=== PATIENT | male | born 1945 | race Caucasian/White ===

== ENCOUNTER 2020-01-19 06:43 | Inpatient (IN) | payer MEDICARE, OTHER ==
[2020-01-13 10:22] LABS: ABSOLUTE LYMPHOCYTES 1.6 thou/uL (0.8-5.3); ABSOLUTE MONOCYTES 0.4 thou/uL (0.0-1.2); ABSOLUTE NEUTROPHILS 3.2 thou/uL (1.6-8.1); BASOPHILS 0.8 %; EOSINOPHILS 0.9 %; HEMATOCRIT 42.8 % (42.0-52.0); HEMOGLOBIN 14.3 gm/dL (14.0-18.0); LYMPHOCYTES 30.8 %; MCH 29.9 pg (26.0-34.0); MCHC 33.4 g/dL (28.0-37.0); MCV 89.5 fL (80.0-100.0); MONOCYTES 7.1 %; MPV 7.5 fl. (7.2-11.1); NUCLEATED RBCS 0 /100WBC; PLATELET COUNT* 244 thou/uL (150-400); POLYS 60.4 %; RBC 4.78 mil/uL (4.50-6.00); RDW-CV 14.7 % (10.5-14.5); WBC 5.3 thou/uL (4.0-11.0)
[2020-01-13 10:29] LABS: APTT 27.8 Seconds (25.0-31.3); INR 1.1; PROTIME 11.2 Seconds (9.20-11.50)
[2020-01-13 10:41] LABS: ALBUMIN 3.9 g/dL (3.4-5.0); CALCIUM 8.5 mg/dL (8.5-10.1); CREATININE 1.2 mg/dL (0.6-1.3); POTASSIUM 4.2 mmol/L (3.5-5.1); TOTAL BILIRUBIN 0.5 mg/dL (<0.1-1.0); TOTAL PROTEIN 7.2 g/dL (6.4-8.2)
[2020-01-13 11:46] LABS: ESR (SEDRATE) 3 mm/hr (0-20)
--- NOTE | 2020-01-13 15:30 | EKG ---
[place] [address] ELECTROCARDIOGRAM REPORT Name: CORNELIA CARABALLO Room: [facility]#: [id number] Admission: Attend Phys: Willi Lawson DO Discharge: Date of : 43 Date of Service: 01/13/20 1025 Report #: [id number] THIS REPORT FOR: //name// [facility] Test Date: 2020-01-13 Test Time: 10:25:04 Pat Name: CORNELIA CARABALLO Department: Room: Gender: M Abstracter: : 1945 Requested By: Willi Lawson Order Number: [id number] Carroll MD: Lester Fishman Measurements Intervals [place] Rate: 60 P: 54 NC: 172 QRS: -86 QRSD: 190 T: 86 QT: 482 QTc: 482 Interpretive Statements A-V dual-paced rhythm with some inhibition No further analysis attempted due to paced rhythm No previous ECG available for comparison Electronically Signed On 01-13-2020 15:29:31 CDT by Lester Fishman [email or web address] <ELECTRONICALLY SIGNED> By: Lester Fishman MD, [facility] 01/13/20 1529 D: [id number] Lester Fishman MD, FACC /EPI
[2020-01-14 02:07] LABS: GLYCOHEMOGLOBIN (HGB A1C) 6.1 % (4.8-5.6)
[~2020-01-19] VITALS: Ht 185.4 cm; Wt 117.9 kg
--- NOTE | ~2020-01-19 | OP ---
[facility] [address] [place] [address] OPERATIVE REPORT Name: CORNELIA CARABALLO Room: [address] [place] ..#: [id number] Admission: 01/19/20 Attend Phys: Safia Aguilar Discharge: Date of : 43 Report #: [id number] THIS REPORT FOR: //name// cc: Allyssa Quintanilla MD, Jayne Lora MD ~ THIS REPORT FOR: //name// CC: Allyssa Ortega DATE OF SERVICE: 01/19/2020 PREOPERATIVE DIAGNOSIS: Advanced degenerative joint disease of the right knee. POSTOPERATIVE DIAGNOSIS: Advanced degenerative joint disease of the right knee. Range of motion is -10 to 90 degrees for the right knee preop. PROCEDURE: Right total knee arthroplasty. SURGEON: Willi Lawson DO WELL LOGGING CAPTAIN MUD ANALYSIS: Leif Sylvester DO and Kenny Summers DO ANESTHESIA: A spinal anesthetic with sedation and an adductor block. ANTIBIOTICS: 2 g Ancef IVPB 30 minutes prior to incision. IMPLANTS: Biomet Vanguard total knee system with a 65 mm cruciate retained right femoral component, an 83 mm fixed cruciate tibial plate cemented with locking bar, a 34 mm asymmetric 3-peg patella, and a 14 mm anterior stabilized E1 tibial bearing. ESTIMATED BLOOD LOSS: 250 mL. COMPLICATIONS: None. SPECIMENS: None. INDICATIONS FOR SURGERY: The patient is a 74-year-old male with longstanding history of severe degenerative joint disease to his right knee. He has had a previous left total knee arthroplasty 10-14 years ago. He is here today for elective right total knee arthroplasty. Risks and complications were discussed in detail with this patient including but not limited to neurovascular damage, [address] [address] OPERATIVE REPORT Name: CORNELIA CARABALLO Room: [address] [place] [facility].#: [id number] Admission: 01/19/20 Attend Phys: Safia Aguilar Discharge: Date of : 43 Report #: [id number] infection, fracture, need for further surgery, failure of the prosthesis, recall of the prosthesis, allergy developed to prosthesis, deep vein thrombosis, pulmonary emboli, myocardial infarction, rhabdomyolysis, blood loss, blood transfusion reaction, pulmonary emboli, anesthesia and anesthesia-related problems, chronic pain, chronic decreased range of motion, leg length inequality, and even . Signed informed consent has been attached to chart, may refer to and his knee is marked preoperatively for timeout technique. All questions were answered. The patient's knee was marked for preoperative timeout technique. DESCRIPTION OF PROCEDURE: The patient was taken to the operative suite and placed on the operating table in supine position. Following a spinal anesthetic with a general sedation, the patient's right knee was prepped and draped in usual sterile fashion with tourniquet to proximal right thigh. The tourniquet was not utilized during the procedure. Estimated blood loss 250 mL. Timeout technique was utilized to verify appropriate surgical site, procedures, concerns. Then, after timeout technique, the anterior incision was made through skin and subcutaneous tissue down to the extensor mechanism. A median parapatellar incision was performed. The kneecap was everted. The knee was then freed from significant scar tissue and hypertrophic capsule with a capsulectomy. The scar tissue over the patella was also removed at this time in order to allow for eversion of the patella and flexion of the knee to 90 degrees. The anterior cruciate ligament and posterior cruciate ligament were released. This allowed for further flexion of the knee. There were significant osteophytes throughout the entire femur both medially and laterally, which were removed with a rongeur. This also allowed for further flexion and the knee was easily brought up to 110 degrees at this stage. The distal femoral drill hole was performed. The distal femoral cutting block was then inserted with the intramedullary guide. This was pinned into place at 13 mm from the most distal aspect of the femur. The distal femur was resected. Next, the tibial guide was aligned in all planes, pinned into place at 10 mm from the highest point on the tibia. The proximal tibia was resected. The bony wafer and meniscal structures were removed. The knee was held in extension and a spacer block was placed, which with a small release of the posterior capsule, there was appropriate amount of bony resection to allow for full extension. The pins were removed. The knee was flexed once again. The femur was measured from anterior to posterior. The 4-in-1 cutting block was impacted firmly into place. Anterior, posterior condylar cuts followed by anterior, posterior chamfer cuts were performed. The cutting block was removed. The bony wafers were removed. The tibia was then measured with the appropriate tibial tray. This was aligned in all planes, pinned into place. A trial femur was then impacted firmly into place. Reduction was performed. Range of motion was checked. The knee was held in extension and with the knee in extension, the patella was then reamed to the appropriate depth of roughly 15-16 mm thickness. It was then measured, [place] [address] OPERATIVE REPORT Name: CORNELIA CARABALLO Room: [address]#: [id number] Admission: 01/19/20 Attend Phys: Safia Aguilar Discharge: Date of : 43 Report #: [id number] drilled, and a patellar trial was applied. Range of motion was checked and now we easily have 0-130 degrees of range of motion with good stability throughout the entire arc of motion. There was excellent stability in the 90-degree flexion range with anterior drawers test with the 14 mm spacer. The trial components were all removed after drilling the distal femur for the final femoral pegs and also preparing the tibia for the final thin tibial tray. The copious amount of irrigation was carried out throughout the incision. There were multiple large loose bodies removed from the posterior capsule of the knee as well as the osteophytes of the tibia, femur, and patella. The final components were placed on the back table. Two bags of Biomet cement were readied. Pulsatile lavage was utilized throughout the knee. The posterior capsule of the knee was injected with the anesthetic solution. The cement was then mixed and when appropriate, it was placed on the posterior aspect of all the components. Cement was then placed into the interstices of bone with pressurization using cement gun, tibia first, femur, then patella. The implants were then impacted firmly into place. This extra cement was removed with sharp dissection with the use of Ryanne [place]. A spacer was placed in the knee. Knee was placed through quick range of motion, found to be extremely stable. Therefore, the final 14 mm spacer was obtained, placed into the knee after copious irrigation. This was locked in place with locking bar. The knee was then held at 90 degrees of flexion until complete cement hardening had occurred with pressurization across the knee joint. Hemostasis was achieved with use of electrocautery direct pressure. The knee was thoroughly irrigated, sprinkled with vancomycin powder throughout the entire knee. The knee was reapproximated with #1 Vicryl in [id number] fashion to the extensor mechanism. This was then followed by a running #1 Quill throughout the entire extensor mechanism. Skin was reapproximated with 2-0 Monocryl subcutaneous sutures followed by running 3-0 Stratafix subcuticular suture. Skin was reinforced with Dermabond glue. The Mepilex dressing was then applied followed by a thigh-high LUZ hose. The patient was taken to the recovery room in stable condition. No complications encountered. By: [id number] Lawson DO /tammie
[~2020-01-19 06:43] MED LIST: ACTOS 30 MG TAB30 MG PO; ANTARA130 MG PO; ASPIRIN325 PO; COREG PO; DIABETA 5MG TABL5 MG PO; FENOFIBRATE145 M1 PO; FLOMAX0.4 MG PO; GLUCOPHAGE500 MG PO; LASIX 40 MG TAB40 MG PO; NIASPAN ER 101000 M1 PO; NOVOLIN 70100 UNIT/5 SQ; PLAVIX 75 MG TA75 MG PO; PRAVACHOL40 MG PO; PRINIVIL5 MG PO; PROSCAR 5MG TABL5 MG PO
[2020-01-19 07:30] VITALS: BP 139/78
[2020-01-19 13:17] VITALS: BP 146/74
[2020-01-19 17:27] VITALS: BP 141/67
--- NOTE | 2020-01-19 17:36 | NUR ---
PT REMIANED ALERT AND ORIENTED. PT RESTING IN BED. SOME BLEEDING NOTED AT DRESSING, MONITORING BLEEDING. HAS NOT PROGRESSED AND STARTED TO DRY. PT DENIES ANY PAIN AT THIS TIME AFTER RECEIVING ORAL PAIN MEDS. PT EDUCATED ON USING CALL LIGHT WHEN NEEDING PAIN MEDS. PT HAS NOT VOICED AT THIS TIME. WILL ATTEMPT BEFORE 1900/ FALL RISK PRECAUTIONS IN PLACE. HOURLY ROUNDING COMPLETED. WILL CONTINUE TO MONITOR.
[2020-01-19 18:08] VITALS: BP 141/67
[2020-01-19 21:26] VITALS: BP 141/76
[2020-01-20] VITALS (7 sets, daily range): BP systolic 114–193; BP diastolic 57–81
[2020-01-20 05:54] LABS: HEMATOCRIT 34.5 % (42.0-52.0); HEMOGLOBIN 11.6 gm/dL (14.0-18.0)
--- NOTE | 2020-01-20 06:12 | NUR ---
PATIENT INCONTINENT OF URINE BUT WILL USE COMMODE IF HE CALLS. RECEIVED OXYCODONE AND TYLENOL FOR PAIN. ALERT AND ORIENTED AND USING 3L OF OXYGEN. NO REPORTS OF NAUSEA. PAIN WELL MANAGED. WILL NEED TO WORK WITH THERAPY. WILL CONTINUE TO FOLLOW PLAN OF CARE.
--- NOTE | 2020-01-20 12:40 | NUR ---
RECIEVED O.T. ORDERS. WILL DEFER TO P.T. AT THIS TIME. PLEASE ORDER FURTHER O.T. SERVICES IF NEEDED.
--- NOTE | 2020-01-20 16:30 | NUR ---
CM UNABLE TO SEE PT.TODAY . NO DISCHARGE FOR TODAY. WILL SEE IN AM.
--- NOTE | 2020-01-20 17:26 | NUR ---
PT REMAINED ALERT AND ORIENTED. PT RESTING IN BED AND UP TO CHAIR DURING SHIFT. PT WORKED WITH THERAPY. PT WANTS ANOTHER DAY FOR THERAPY AND PAIN CONTROL. MEDS GIVEN ORDERED. DRESSING REINFORCED TO RT KNEE. ONQ PUMP IN PLACE. FALL RISK PRECAUTIONS IN PLACE. HOURLY ROUNDING COMPLETED. WILL CONTINUE TO MONITOR.
[2020-01-20] MEDS ORDERED: ELIQUIS2.5 MG PO (17:49)
[2020-01-20] MEDS ORDERED: OXYBUTYNIN 5 MG5 M2 PO (17:50)
[2020-01-20] MEDS ORDERED: TRAMADOL 50 MG50 MG PO (17:50)
[2020-01-21 03:52] LABS: HEMOGLOBIN 11.5 gm/dL (14.0-18.0)
[2020-01-21 04:00] VITALS: BP 172/83
--- NOTE | 2020-01-21 06:13 | NUR ---
PATIENT UP WITH ASSISTANCE, GAITBELT/WALKER TO RESTROOM. VOIDING WELL. CAN PUT ON HIS OWN CLOTHING. HAD A SLIGHT FEVER AT BEDTIME (100.3) TYLENOL ADMINISTERED LAST TEMP 98.4. GET UP WELL, EATING AND DRINKING WITHOUT NAUSEA OR VOMITING. RECEIVED OXYCODONE 10 MG FOR PAIN AT 0400. WILL CONTINUE TO FOLLOW PLAN OF CARE.
[2020-01-21 09:42] VITALS: BP 156/68
--- NOTE | 2020-01-21 11:00 | NUR ---
PT.READY TO DISCHARGE TODAY. HE IS GOING TO STAY WITH HIS DAUGHTER IN [place], [place] UNTIL SUNDAY. HE NORMALLY LIVES WITH AND TAKES CARE OF HER , SHE HAS COPD. HIS 'S PCP SAID SHE SHOULD NOT BE AROUND ANYONE WITH COVID AND PT.IS AFRAID HE MAY GIVE IT TO HER AFTER BEING IN HOSPITAL. HE WAS COVID NEG.PRIOR TO SURGERY. HE WANTS TO DO THERAPY AT [facility] IN [place]. HE SAID HE WILL NOT BE IN TOWN UNTIL SUNDAY. CM FAXED ORDERS TO [facility] AND PUT ON INFORMATION TO CALL PT.TO SET UP APPTS. CALLED IN [facility] PRESCRIPTION WRITTEN TO [facility] ON [address] THEY SAIO THEY DID NOT HAVE INSURANCE INFORMATION . PT.INFORMED. HE SAID I'VE BEEN WITH THEM FOR 6 YRES. HE SAID HE WOULD TAKE THE PRESCRIPTION TO THE [facility] IN [place] AND GIVE THEM HIS INSURANCE INFORMATION. TOLD HIM IF HE COULD NOT AFFORD COPAY ON [employer] TO CALL HIS DR'S OFFICE TODAY TO SEE WHAT TO TAKE INSTEAD.
[2020-01-21] MEDS ORDERED: OXYCODONE HCL 55 MG PO (12:54)
[2020-01-21] MEDS ORDERED: ELIQUIS2.5 MG PO (12:54)
--- NOTE | 2020-01-21 17:58 | NUR ---
ASSUMED CARE OF PATIENT AT APPROX 0730. ALERT AND ORIENTED X4. ASSESSMENT COMPLETED AND CHARTED. VSS ON ROOM AIR. PAIN MANAGED WITH ORAL OXY IR. PATIENT UP WITH GAIT BELT AND WALKER, WORKING WITH THERAPIES AND PROGRESSED TOWARD GOALS. NO OTHER COMPLAINTS. PATIENT DISCHARGED AT 1400 WITH ALL PERSONAL BELONGINGS, PRESCRIPTIONS AND DISCHARGE INFORMATION.
== END 2020-01-21 14:00 | disposition home or self-care (01) | DRG 470 ==
LOC: M.TBA 06:43 → M.ORTHSURG 07:03 → M.PRE 08:26 → M.TBA 11:47 → M.ORTHSURG 12:55 → M.PRE 19:17 → M.ORTHSURG 01-21 14:00
PROVIDERS: Orthopaedic Surgery; ADMIT Internal Medicine; ATTEND Internal Medicine
DX: M17.11 Unilateral primary osteoarthritis, right knee (principal); E78.00 Pure hypercholesterolemia, unspecified; E78.5 Hyperlipidemia, unspecified; I12.9 Hypertensive chronic kidney disease with stage 1 through stage 4 chronic kidney disease, or unspecified chronic kidney disease; N40.0 Benign prostatic hyperplasia without lower urinary tract symptoms; N18.9 Chronic kidney disease, unspecified; E66.9 Obesity, unspecified; G89.29 Other chronic pain; G47.33 Obstructive sleep apnea (adult) (pediatric); Z68.34 Body mass index [BMI] 34.0-34.9, adult; Z95.0 Presence of cardiac pacemaker; Z98.84 Bariatric surgery status; Z87.891 Personal history of nicotine dependence; Z85.528 Personal history of other malignant neoplasm of kidney; Z03.818 Encounter for observation for suspected exposure to other biological agents ruled out